=== PATIENT | male | born 1985 | race Caucasian/White ===

== ENCOUNTER → 2016-08-31 | Outpatient (CLI) | payer BC ==
[2016-08-31 13:19] LABS: Basophils % (A) 0 %; CH 33.8; CHCM 35.9; Eosinophils # (A) 0.1 k/uL (0-0.7); Eosinophils % (A) 2 %; HCT 46.9 % (39.0-53.0); HDW 2.54; HGB 16.4 gm/dL (13.0-17.5); Luc # (Auto) 0.11; Luc % (Auto) 2; Lymphocytes # (A) 1.2 k/uL (1.0-4.8); Lymphocytes % (A) 17 %; MCHC 34.9 g/dL (31.0-37.0); MCV 94.4 fL (80.0-100.0); Mean Platelet Volume 6.1; Monocytes # (A) 0.4 k/uL (0-1.0); Monocytes % (A) 5 %; Neutrophils # (A) 5.1 k/uL (1.3-7.7); Neutrophils % (A) 74 %; RBC 4.97 m/uL (4.30-5.90); RDW 12.5 % (11.5-15.5); WBC 6.9 k/uL (3.8-10.6); WBC (Perox) 6.64
[2016-08-31 13:35] LABS: Appearance,Urine Clear (Clear); Bilirubin,Urine Negative (Negative); Glucose,Urine (UA) Negative (Negative); Ketones,Urine Negative (Negative); Leukocyte Esterase,Urine Negative (Negative); Nitrite,Urine Negative (Negative); Protein,Urine Trace (Negative); Specific Gravity,Urine 1.018 (1.001-1.035); UA Billing (MACRO vs. MICRO) CHEM; Urobilinogen,Urine <2.0 mg/dL (<2.0)
[2016-08-31 13:39] LABS: ALT 49 U/L (21-72); AST 34 U/L (17-59); Alkaline Phosphatase 49 U/L (38-126); Anion Gap 10 mmol/L; Blood Urea Nitrogen 9 mg/dL (9-20); C Reactive Protein <5.0 mg/L (<10.0); Calcium 8.1 mg/dL (8.4-10.2); Carbon Dioxide 27 mmol/L (22-30); Chloride 105 mmol/L (98-107); Glucose 102 mg/dL (74-99); Non-African American GFR(MDRD) >60 (>60 ml/min/1.73 sqM); Potassium 4.2 mmol/L (3.5-5.1); Sodium 142 mmol/L (137-145); Total Bilirubin 0.8 mg/dL (0.2-1.3); Total Protein 7.2 g/dL (6.3-8.2)
[2016-08-31 13:44] LABS: Rheumatoid Factor, Qnt <9 IU/mL (<12)
[2016-08-31 14:06] LABS: Creatinine,Urine Random 222.4 mg/dL
[2016-08-31 15:03] LABS: Erythrocyte Sedimentation Rate 2 mm/hr (0-15)
[2016-08-31 20:35] LABS: ANA w/Reflex to Titer NEGATIVE (NEGATIVE)
[2016-09-01 06:26] LABS: Cyclic Citrullinated Pep IgG 13 UNITS (<20)
[2016-09-02 11:21] LABS: Mis test requested (Non-blood) Urine Prot.Electroph
== END | disposition home or self-care (01) ==
LOC: LABWHC1 12:34
PROVIDERS: ATTEND Internal Medicine
DX: M35.9 Systemic involvement of connective tissue, unspecified (principal)
CPT/HCPCS: 36415; 80053; 81003; 82306; 82570; 84156; 84165; 85025; 85652; 86038; 86140; 86160; 86200; 86225; 86235; 86335; 86431

== ENCOUNTER → 2020-04-04 | Outpatient (CLI) | payer BC ==
--- NOTE | 2020-04-04 08:25 | US ---
EXAMINATION TYPE: US thyroid st tissue head/neck DATE OF EXAM: 04/04/2020 COMPARISON: NONE CLINICAL HISTORY: R53.83 Other fatigue. Fatigue GLAND SIZE: Right Lobe: 4.9 x 1.3 x 1.3 cm Overall Parenchyma: homogenous Left Lobe: 4.8 x 2.0 x 1.4 cm Overall Parenchyma: homogeneous Isthmus Thickness: 0.2 cm NODULES RIGHT: # of nodules measured on right: 0 LEFT: # of nodules measured on left: 0 ISTHMUS: # of nodules measured in the isthmus: 0 Bilateral neck scanned, no evidence of lymphadenopathy. IMPRESSION: Normal thyroid
== END | disposition home or self-care (01) ==
LOC: RADUSWWP 07:18
PROVIDERS: ATTEND Internal Medicine Endocrinology, Diabetes & Metabolism
DX: R53.83 Other fatigue (principal)
CPT/HCPCS: 76536

== ENCOUNTER → 2020-05-24 | Outpatient (CLI) | payer BC ==
--- NOTE | 2020-05-24 09:47 | MR ---
EXAMINATION TYPE: MR pituitary wo/w con DATE OF EXAM: 05/24/2020 COMPARISON: NONE HISTORY: Abnormal thyroid function test, elevated cortisol level, pituitary adenoma. TECHNIQUE: Multiplanar, multisequence images of the brain and brainstem is performed without and with IV contras t, utilizing 7 mL intravenous Gadavist . Pituitary gland protocol. FINDINGS: Pituitary gland normal in size with an sella turcica. There is concave superior margin. Pit uitary stalk shows normal enhancement in the midline. There is slightly heterogeneous enhancement of the gland without focal area of nonenhancement to suggest microadenoma. Suprasellar cistern is mainta ined. Optic chiasm is not effaced. Midline structures demonstrate normal morphology. No gross hydrocephalus. IMPRESSION: No MRI evidence for pituitary micro or macroadenoma.
== END | disposition home or self-care (01) ==
LOC: RADMRIMAIN 07:35
PROVIDERS: ATTEND Internal Medicine Endocrinology, Diabetes & Metabolism
DX: D35.2 Benign neoplasm of pituitary gland (principal); R94.6 Abnormal results of thyroid function studies; R79.89 Other specified abnormal findings of blood chemistry
CPT/HCPCS: 70553; A9585

== ENCOUNTER → 2021-02-16 | Outpatient (CLI) | payer BC ==
[2021-02-16 16:12] LABS: Basophils # (A) 0.03 X 10*3/uL (0.00-0.10); Basophils % (A) 0.4 %; Eosinophils # (A) 0.34 X 10*3/uL (0.04-0.35); HCT 43.2 % (39.6-50.0); HGB 14.9 g/dL (13.0-17.0); Lymphocytes # (A) 1.63 X 10*3/uL (0.90-5.00); Lymphocytes % (A) 19.3 %; MCH 33.2 pg (27.0-32.0); MCHC 34.5 g/dL (32.0-37.0); MCV 96.2 fL (80.0-97.0); Mean Platelet Volume 9.3 fL (9.5-12.2); Monocytes % (A) 7.1 %; Neutrophils # (A) 5.79 X 10*3/uL (1.80-7.70); Neutrophils % (A) 68.7 %; Platelet Count 242 X 10*3/uL (140-440); RBC 4.49 X 10*6/uL (4.40-5.60); RDW 11.9 % (11.5-14.5); WBC 8.43 X 10*3/uL (4.50-10.00)
[2021-02-16 16:36] LABS: African American GFR (CKD) 124.1 (60.0-200.0); Albumin 4.7 g/dL (3.8-4.9); Albumin/Globulin Ratio 2.35 (1.60-3.17); Anion Gap 11.1 mmol/L (4.00-12.00); BUN/Creat Ratio 9.65 Ratio (12.00-20.00); Calcium 7.6 mg/dL (8.7-10.3); Carbon Dioxide 27.2 mmol/L (21.6-31.8); Non-African American GFR(CKD) 107.1 (60.0-200.0); Potassium 3.8 mmol/L (3.5-5.5); Prolactin 13.1 ng/mL (2.100-17.700); T4, Free (Free Thyroxine) 1.19 ng/dL (0.800-1.800); Total Bilirubin 0.7 mg/dL (0.30-1.20); Total Protein 6.6 g/dL (6.2-8.2)
[2021-02-16 18:15] LABS: Thyroid Peroxidase Antibodies <9.0 U/mL (0.0-33.0)
== END | disposition home or self-care (01) ==
LOC: LABWHC1 09:14
PROVIDERS: ATTEND Internal Medicine Endocrinology, Diabetes & Metabolism
DX: D35.2 Benign neoplasm of pituitary gland (principal); E83.51 Hypocalcemia; R53.83 Other fatigue
CPT/HCPCS: 36415; 80053; 82024; 82533; 84100; 84146; 84305; 84403; 84439; 84481; 85025; 86376

== ENCOUNTER 2021-06-04 08:10 | Day surgery (SDC) | payer BC ==
[2021-06-02 14:02] VITALS: BMI 27.4
[~2021-06-04 08:10] MED LIST: DEXAMETHASONE SOD PHOSPHATE 4 MG/ML 1 ML VIAL IV ONE; FAMOTIDINE 20 MG/2 ML VIAL IV PRN; HYDROmorphone 0.5 MG/0.5 ML SYRINGE IVP PRN; LACTATED RINGERS 1,000 ML IV SCH; MELOXICAM 7.5 MG TAB PO PRN; MIDAZOLAM 2 MG/2 ML VIAL IV PRN; ONDANSETRON 4 MG/2 ML VIAL IVP ONE; Pre Op ABX Message 1 EACH MISC MISCELLANE ONE; SCOPOLAMINE 1.5MG/72HR PATCH TRANSDERM ONE
[2021-06-04] MEDS: OXYMETAZOLINE 0.05% NASL SPRAY 1 SPRAY BOTTLE EA NOSTRIL PRN ×4 (08:30→08:45)
[2021-06-04] MEDS ORDERED: LACTATED RINGERS 1,000 ML IV ONE ×2 (08:42→11:21)
[2021-06-04] MEDS ORDERED: ROCURONIUM 10 MG/ML (5 ML VIAL) IV ONE (10:09)
[2021-06-04] MEDS ORDERED: fentaNYL (PF) 50 MCG/ML 2 ML AMP ONE (10:09)
[2021-06-04] MEDS ORDERED: NEOSTIGMINE 1 MG/ML 10 ML VIAL ONE (10:09)
[2021-06-04] MEDS ORDERED: LIDOCAINE 1% INJ 10MG/ML (20 ML MDV) ONE (10:09)
[2021-06-04] MEDS ORDERED: PROPOFOL 10 MG/ML 20 ML VIAL IV ONE (10:09)
[2021-06-04] MEDS ORDERED: MIDAZOLAM 2 MG/2 ML VIAL ONE (10:09)
[2021-06-04] MEDS ORDERED: BUPIVACAIN-EPI 0.25%-1:200,000 30 ML VIAL SQ ONE (10:29)
[2021-06-04] MEDS ORDERED: LIDOCAINE 1% (PF) 10 MG/ML (30 ML SDV) SQ ONE (10:29)
--- NOTE | 2021-06-04 11:32 | P.OP ---
Date of Procedure: 06/04/21 Preoperative Diagnosis: Deviated nasal septum Bilateral hypertrophy of the inferior nasal turbinates Postoperative Diagnosis: Same Procedure(s) Performed: Septoplasty Bilateral submucosal resection of the inferior nasal turbinates with outfracturing compression Anesthesia: YOSSI Surgeon: Adiel Cleveland Estimated Blood Loss (ml): 10 Pathology: other (Septum and turbinates) Condition: stable Disposition: PACU Indications for Procedure: This patient is a 35-year-old white male with elbow in the nose about 5 years ago playing basketball and since that time he's had persistent nasal obstruction. This problem has not been amenable to medical therapy including Flonase nasal spray etc. he would like to proceed forward with surgical correction. All risks, benefits and alternative therapies were discussed in detail. Consent was obtained and all questions were answered. Operative Findings: Severe right septal deviation anteriorly with a left septal deviation posteriorly with over 90% occlusion. Inferior turbinates were markedly enlarged and hypertrophic and obstructive. Description of Procedure: DESCRIPTION OF OPERATION: This patient was taken to the operative room and placed in the supine position. A general inhalation anesthetic was administered to the patient by the department of anesthesia with a functioning IV line in place. The patient was monitored throughout the entire case by the department of anesthesia. The eyes were taped shut for protection. The patient was placed in a slight reverse Trendelenburg position. The patient had previously utilize Afrin nasal spray preoperatively. The nose was evaluated and the septum lateral nasal wall and inferior turbinates were injected with lidocaine 1% with epinephrine 1 100,000 bilaterally. Approximately 10 minutes were allowed wait for full vasoconstrictive effects to take place. At this point a caudal incision was made over the caudal portion of the left septum down to the mucoperichondrium. A mucoperichondrial flap was elevated on the left side and dissection was carried with use of tunnels posteriorly. We then made a crossover incision through the cartilage to the contralateral side and for the mucoperichondrial flap development was performed to the extent of visualization on the contralateral side. After the cartilage was freed with use of several crosshatching incisions and removal of some redundant strips of septal cartilage, the septum was straightened and placed back in the midline. The septum was sutured fixated to the vomerian groove. Excellent straightening occurred and the septum was visibly straight. Incision was closed with a 40 rapid Vicryl. We utilized a running nonlocking fashion for closure of the incision. A quilting stitch was used to reapproximate the septal flaps with use of a 40 rapid Vicryl. Intranasal splints were inserted and fixated at the end of the case. We utilized Padilla nasal splints. They will be removed and the patient returns to the office. Attention was then paid to the inferior turbinates. The bilateral inferior turbinates were hypertrophic and obstructive. We entered the anterior portion of the inferior turbinates with use of a microdebrider. We remove bone and sub mucosal elements with use of a microdebrider bilaterally. The inferior turbinates underwent a submucosal resection with removal of submucosal tissue and bone. We obtained a much better and normal in size for breathing. The inferior turbinates were then outfractured and compressed with a 2Vancouveres nasal elevator. Excellent airway was obtained and was symmetric bilaterally. No bleeding was encountered.
[2021-06-04 12:02] VITALS: TEMP 97.2
[2021-06-04 12:15] VITALS: RESP 16
[2021-06-04] MEDS ORDERED: HYDROmorphone 0.5 MG/0.5 ML SYRINGE IVP ONE (12:15)
[2021-06-04 12:52] VITALS: BP 128/84; PULSE 82
== END 2021-06-04 13:39 | disposition home or self-care (01) ==
LOC: OR 08:10
PROVIDERS: ATTEND Otolaryngology
DX: J34.3 Hypertrophy of nasal turbinates (principal); J34.2 Deviated nasal septum; K21.9 Gastro-esophageal reflux disease without esophagitis; E07.9 Disorder of thyroid, unspecified; Z98.890 Other specified postprocedural states; Z80.1 Family history of malignant neoplasm of trachea, bronchus and lung; Z83.49 Family history of other endocrine, nutritional and metabolic diseases; Z82.61 Family history of arthritis; F17.210 Nicotine dependence, cigarettes, uncomplicated; Z88.2 Allergy status to sulfonamides
CPT/HCPCS: 88300; 30520; 30140; J2250; J1100; J2710; J2405; J2001 ×2; J3010; J2704; J1170

== ENCOUNTER 2022-01-25 08:17 | Day surgery (SDC) | payer BC ==
[~2022-01-25 08:17] MED LIST changes: -DEXAMETHASONE SOD PHOSPHATE 4 MG/ML 1 ML VIAL IV ONE; -FAMOTIDINE 20 MG/2 ML VIAL IV PRN; -HYDROmorphone 0.5 MG/0.5 ML SYRINGE IVP PRN; +LIDOCAINE 1% (10MG/ML) FOR IV START INTRADERMA PRN; -MELOXICAM 7.5 MG TAB PO PRN; -MIDAZOLAM 2 MG/2 ML VIAL IV PRN; -ONDANSETRON 4 MG/2 ML VIAL IVP ONE; -Pre Op ABX Message 1 EACH MISC MISCELLANE ONE; -SCOPOLAMINE 1.5MG/72HR PATCH TRANSDERM ONE
[2022-01-25 08:36] VITALS: RESP 16; TEMP 97.9
[2022-01-25] MEDS ORDERED: PROPOFOL 10 MG/ML 20 ML VIAL IV ONE (09:26)
--- NOTE | 2022-01-25 09:30 | P.GSHP ---
History of Present Illness H&P Date: 01/25/22 Chief Complaint: Rectal bleeding This a 36-year-old male who's experience rectal bleeding. Patient describes blood in the stool and in the toilet bowl.. He presents today for colonoscopy. Past Medical History Past Medical History: GERD/Reflux, Thyroid Disorder Additional Past Medical History / Comment(s): bloody stools, rt knee early arthritis- hx of fx History of Any Multi-Drug Resistant Organisms: None Reported Past Surgical History: Adenoidectomy, Tonsillectomy Past Anesthesia/Blood Transfusion Reactions: No Reported Reaction, Motion Sickness Additional Past Anesthesia/Blood Transfusion Reaction / Comment(s): no blood transfusions Smoking Status: Current every day smoker - Past Family History Mother Family Medical History: Cancer Additional Family Medical History / Comment(s): single cell lung cancer Father Family Medical History: No Reported History Medications and Allergies Home Medications Medication Instructions Recorded Confirmed Type Ascorbic Acid [Vitamin C] 500 mg PO DAILY 06/02/21 01/21/22 History Levothyroxine Sodium [Synthroid] 50 mcg PO QAM 06/02/21 01/21/22 History Multivitamins, Thera [Multivitamin 1 tab PO DAILY 06/02/21 01/21/22 History (formulary)] [place]-3 Fatty Acids/Fish Oil [Fish 1 each PO DAILY 06/02/21 01/21/22 History Oil 1,000 mg Softgel] Allergies Allergy/AdvReac Type Severity Reaction Status Date / Time Sulfa (Sulfonamide Allergy Unknown Verified 01/25/22 08:31 Antibiotics) Childhood Surgical - Exam Vital Signs Temp Pulse Resp BP Pulse Ox 97.9 F 89 16 125/80 98 01/25/22 08:33 01/25/22 08:33 01/25/22 08:33 01/25/22 08:33 01/25/22 08:33 - General well developed, well nourished, no distress - Eyes PERRL - ENT normal pinna - Neck no masses - Respiratory normal expansion - Cardiovascular Rhythm: regular - Abdomen Abdomen: soft, non tender Assessment and Plan Assessment: Rectal bleeding. We'll perform colonoscopy.
--- NOTE | 2022-01-25 09:43 | P.OP ---
Date of Procedure: 01/25/22 Preoperative Diagnosis: GI bleed Postoperative Diagnosis: Internal hemorrhoids Procedure(s) Performed: Colonoscopy Anesthesia: MAC Surgeon: Bill Nieto Pathology: none sent Condition: stable Disposition: PACU Description of Procedure: The patient's placed on the endoscopy table in the lateral position. He received IV sedation. Digital rectal exam was performed. Revealed significant internal hemorrhoids. Flexible colonoscope was then placed patient anus and passed throughout the entire colon. The ileocecal valve was visualized. The cecum, ascending and transverse colon appeared normal. The descending and sigmoid colon appeared normal. The scope was then brought back the rectum this appeared normal. Scope withdrawn for patient. Significant internal hemorrhoids are noted. He was no evidence of any active GI bleed. Presumed patient may have had bleeding from hemorrhoids
[2022-01-25 09:47] VITALS: PULSE 77
[2022-01-25 10:00] VITALS: BP 123/87
== END 2022-01-25 10:20 | disposition home or self-care (01) ==
LOC: ORWHC2ENDO 08:17
PROVIDERS: ATTEND Surgery
DX: K64.8 Other hemorrhoids (principal); K21.9 Gastro-esophageal reflux disease without esophagitis; E07.9 Disorder of thyroid, unspecified; F17.200 Nicotine dependence, unspecified, uncomplicated; Z90.89 Acquired absence of other organs; Z80.1 Family history of malignant neoplasm of trachea, bronchus and lung; Z98.890 Other specified postprocedural states; Z79.899 Other long term (current) drug therapy; Z88.2 Allergy status to sulfonamides
CPT/HCPCS: 45378; J2704

== ENCOUNTER → 2022-10-12 | Outpatient (CLI) | payer BC | LOC: CPPFTMAIN 14:33 | PROVIDERS: ATTEND Internal Medicine Rheumatology | DX: M34.9 Systemic sclerosis, unspecified (principal); Z88.2 Allergy status to sulfonamides | CPT/HCPCS: 94060; 94726; 94729 ==